=== PATIENT | female | born 1950 | race Hispanic/Latino ===

== ENCOUNTER 2019-03-07 22:43 | Inpatient (IN) | payer MEDICARE ==
[~2019-03-07] VITALS: Ht 152.4 cm; Wt 57.4 kg
[2019-03-07] MEDS ORDERED: ZOFRAN4 MG PO (23:02)
[2019-03-08] MEDS ORDERED: METFORMIN HCL1000 MG PO (03:25)
[2019-03-08] MEDS ORDERED: LIPITOR20 MG PO (03:26)
[2019-03-08] MEDS ORDERED: LISINOPRIL2.5 MG PO (03:27)
[2019-03-08] MEDS ORDERED: CALTRATE 600 +1 EAC1 PO (03:27)
--- NOTE | 2019-03-09 10:51 | HP ---
[facility] [address], [place] [address] Signed ADMISSION DATE: 03/08/2019 REASON FOR ADMISSION: Incarcerated right inguinal hernia, low-grade obstruction of bowel. HISTORY OF PRESENT ILLNESS: This 68-year-old woman is from the [facility] and developed right lower abdominal pain at 1:30 in the afternoon on the day of admission. The pain was constant. She had associated nausea and vomiting. She presented to the emergency room where she was evaluated by Dr. Rice. Initial examination showed no obvious abnormality. A CT scan was performed, which showed an incarcerated right inguinal hernia. Re-examination confirmed a mass in the right lower groin crease area. She was admitted for further evaluation and care. Her past medical history is negative for prior hernia operation; however, she does describe some sort of hernia-type problem at age 2. It is quite unclear. The hernia was thought to be reducible largely by the emergency room physician and direct admission to the hospital was undertaken with fluid administration, making the patient n.p.o. PAST MEDICAL HISTORY: Includes diabetes and hypertension. REVIEW OF SYSTEMS: She denies any shortness of breath or chest pain. She has had no hematemesis or blood per rectum. She has not had any nausea or vomiting since admission. PHYSICAL EXAMINATION: GENERAL: Pleasant woman who looks to be nontoxic. HEENT: Mucous membranes are reasonably moist. Trachea is midline. CHEST: Clear. HEART: Regular without murmur. ABDOMEN: Nondistended and generally soft. In the right groin area, there is a non-reducible hernia. It is locally tender to some degree. EXTREMITIES: Show no clubbing, cyanosis, or edema. LABORATORY DATA: Lab studies from admission show a white count of 11.7, hematocrit 41.4. Chem profile is normal. Glucose is 191. Liver enzymes are normal. Lipase 22. Urinalysis is normal. I reviewed the CT scan in detail. Relatively high-grade obstruction of small bowel is noted through what appears to be an incarcerated right inguinal hernia. Electronically Signed By: ANGELA BLAKE MD 03/09/19 1051 PATIENT NAME: JANET MAHER HISTORY AND PHYSICAL DATE OF : 48 REPORT #: [id number] PHYSICIAN: ANGELA BLAKE MD PCP: OTHER PCP REPORT IS CONFIDENTIAL AND NOT TO BE RELEASED WITHOUT AUTHORIZATION [facility] [address] [place] [address] Signed ASSESSMENT: She has a right inguinal hernia, which is incarcerated and causing low-grade bowel obstruction. Operative repair is certainly needed. I discussed this with her in detail and the risks of bleeding, infection, and other unforeseen complications were reviewed in detail. PLAN: We will continue with IV fluids. Given her obstructive pattern, nasogastric tube will be placed so as to minimize chances of aspiration at the time of induction of anesthesia. We will plan to do the operation today obviously. MD LORE Coulter/YARA /[id number] cc: Julieth Rice MD Copies: JULIETH RICE MD ~ Electronically Signed By: ANGELA BLAKE MD 03/09/19 1051 PATIENT NAME: JANET MAHER HISTORY AND PHYSICAL DATE OF : 48 REPORT #: [id number] PHYSICIAN: ANGELA BLAKE MD PCP: OTHER PCP REPORT IS CONFIDENTIAL AND NOT TO BE RELEASED WITHOUT AUTHORIZATION
[2019-03-09] MEDS ORDERED: TYLENOL325 MG PO (12:31)
[2019-03-09] MEDS ORDERED: OXYCODON-ACETA1 EAC2 PO (12:31)
[2019-03-09] MEDS ORDERED: MOTRIN IB200 MG PO (12:32)
--- NOTE | 2019-03-15 14:35 | OR ---
[facility] [address], [place] [address] Signed DATE OF OPERATION: 03/08/2019 SURGEON: Angela Blake MD PREOPERATIVE DIAGNOSIS: Incarcerated right groin hernia with small bowel obstruction (ileum). POSTOPERATIVE DIAGNOSIS: Incarcerated right femoral hernia with small bowel obstruction (ileum). PROCEDURES: 1. Repair of incarcerated right femoral hernia. 2. Implantation of Prolene mesh. ANESTHESIA: General endotracheal; Angela Brown CRNA, and Mishel Mckenzie CRNA as well as local 10 mL of 0.25% Marcaine with epinephrine. INDICATION: This 68-year-old woman presented to the ER with severe right lower abdominal pain and abdominal distention. A CT scan was performed confirming an incarcerated right groin hernia. Clinical examination fails to distinguish a femoral versus inguinal hernia. She has been given fluid resuscitation, intravenous antibiotics and so forth and is now to undergo repair. She understands the risk of bleeding, infection, recurrence, and other unforeseen complications including possibility of need for laparotomy or bowel resection and wished to proceed. FINDINGS: A standard inguinal incision was made, which ultimately revealed the hernia was indeed an incarcerated femoral hernia. The incarcerated organ was that of the ileum. A small division of the inguinal ligament was required to reduce the bowel fully, but the bowel that was reduced was viable. Repair included reconstitution of the ilioinguinal ligament as well as implantation of Prolene mesh extending over the iliopubic tract covering the defect. Additionally, soft tissue over the femoral canal was reapproximated. DESCRIPTION OF PROCEDURE: The patient was brought to the operating room, given a general endotracheal anesthetic. Preoperative antibiotic Ancef was given. Sequential compression device stockings used Electronically Signed By: ANGELA BLAKE MD 03/15/19 1435 PATIENT NAME: JANET MAHER OPERATIVE REPORT DATE OF : 48 REPORT #: [id number] PHYSICIAN: ANGELA BLAKE MD PCP: OTHER PCP REPORT IS CONFIDENTIAL AND NOT TO BE RELEASED WITHOUT AUTHORIZATION [facility] [address], [place] [address] Signed and heparin subcutaneously administered. The abdomen was prepared with a chlorhexidine solution and draped sterilely. The palpable mass was in the region of the inguinal ligament, not above and not below specifically. An incision was made along the line of skin tension cephalad to the ilioinguinal ligament. Dissection carried through the subcutaneous tissue. Dissection with blunt technique was undertaken ultimately allowing for opening of the external oblique fascia. The round ligament going to the labia was identified and edema and fullness noted in the region. The bulge appeared to be in fact below the inguinal ligament and the subcutaneous tissue inferiorly and laterally was freed more fully confirming this. This was indeed an incarcerated femoral hernia. The floor of the canal was opened allowing for good visualization of the femoral canal with the small bowel loop that had transgressed the area. The hernia sac itself was edematous and with various maneuvers, both pulling and pushing the incarcerated loop of bowel could not be reduced. On that basis, a right angle clamp was used to incise the femoral canal superficially dividing a portion of the iliopubic tract, thus allowing for reduction of the hernia. The properitoneal space was more fully developed and implantation of Prolene mesh as a definitive treatment was deemed most advisable. The ilioinguinal ligament was reconstituted with interrupted Prolene suture. A segment of Prolene mesh was cut to a modified elliptical configuration and secured with care taken to cover the iliopubic tract and thus also the femoral canal. This was secured to the iliopubic tract and to portions of the ilioinguinal ligament laterally and superiorly and medially beneath the conjoined tendon or tendon of the transversus abdominis. Good coverage was noted. Examination inferior to the inguinal ligament showed the mesh covering the femoral defect, but additional sutures were placed there to secure the mesh and to avoid reherniation. The round ligament had been excised to allow for better exposure. The external oblique was reapproximated with running 2-0 PDS. Ron's layer was reapproximated with interrupted 2-0 Vicryl and skin closed with running subcuticular 3-0 Vicryl. 10 mL of 0.25% Marcaine with epinephrine had been injected locally for postoperative analgesic benefit. Steri-Strips were applied as was Mepilex silver sponge dressing and an OpSite. The patient tolerated procedure well. BLOOD LOSS: Minimal. COMPLICATIONS: None. Electronically Signed By: ANGELA BLAKE MD 03/15/19 1435 PATIENT NAME: JANET MAHER OPERATIVE REPORT DATE OF : 48 REPORT #: [id number] PHYSICIAN: ANGELA BLAKE MD PCP: OTHER PCP REPORT IS CONFIDENTIAL AND NOT TO BE RELEASED WITHOUT AUTHORIZATION [facility] [address] [place] [address] Signed Angela Blake MD JM/MODL /[id number] Copies: ~ Electronically Signed By: ANGELA BLAKE MD 03/15/19 1435 PATIENT NAME: GUNNARJANET BARBARA OPERATIVE REPORT DATE OF : 48 REPORT #: [id number] PHYSICIAN: ANGELA BLAKE MD PCP: OTHER PCP REPORT IS CONFIDENTIAL AND NOT TO BE RELEASED WITHOUT AUTHORIZATION
== END 2019-03-09 15:20 | disposition home or self-care (01) | DRG 352 ==
LOC: ED 22:43 → MS 22:45
PROVIDERS: ADMIT Surgery
PROC: 0YU70JZ Supplement Right Femoral Region with Synthetic Substitute, Open Approach (ICD-10-PCS; principal; 2019-03-08 08:30)
DX: K41.30 Unilateral femoral hernia, with obstruction, without gangrene, not specified as recurrent (principal); E11.9 Type 2 diabetes mellitus without complications; I10 Essential (primary) hypertension; Z88.0 Allergy status to penicillin; Z88.5 Allergy status to narcotic agent
CPT/HCPCS: 00830; 71045; 74018; 74177; 80053; 81001; 83690; 85025; 87088; 94762; 99285-25; C1781; J0131; J0330; J0690; J0694; J1100; J1170; J1644; J1885; J2250; J2405; J2704; J2765; J3010; J3475; J7030; J7060; J7120; Q9967

== ENCOUNTER 2019-11-15 10:00 | Day surgery (SDC) | payer MEDICARE ==
[~2019-11-15] VITALS: Ht 152.4 cm; Wt 59.0 kg
--- NOTE | ~2019-11-15 | OR ---
[facility] [address] [place], [place] [address] Draft DATE OF OPERATION: 11/15/2019 SURGEON: Angela Blake MD PREOPERATIVE DIAGNOSIS: Recurrent right groin hernia. POSTOPERATIVE DIAGNOSIS: Complex recurrent right groin hernia including femoral canal and ilioinguinal floor. PROCEDURE: 1. Repair of recurrent large femoral/inguinal hernia. 2. Implantation of Prolene mesh. 3. Tissue reapproximation to the iliopubic tract. ANESTHESIA: General endotracheal; Angela Brown CRNA, and local 10 mL of 0.25% Marcaine with epinephrine. INDICATION: This 69-year-old woman is a patient of Dr. Nasir Gonzalez, of [place], [place]. She had undergone an incarcerated right femoral hernia repair in February of 2019. Repair was challenging and partial division of the ilioinguinal ligament was required for reduction of the hernia. Repair included implantation of mesh. She developed a recurrent hernia in the right groin and was seen in the COVID era, unable to have repair of the hernia at that time. Her right inguinal hernia is rather bulky and fully reducible without sign of an incarceration; however, I have recommended repair. The risks of bleeding, infection, and most importantly recurrence were reviewed with her and she understands and wished to proceed. Of note, she does not have urinary outlet obstruction symptoms, constipation, or chronic cough. FINDINGS: A total blow out of the floor was noted. This included the area of the femoral hernia repair. Herniation of bowel in the hernia sac was noted. There was no sign of incarcerated viscus. The bowel was easily reduced. The medial aspect did show bladder fat. Ultimately defined well was the iliopubic tract and the firm fibrotic mesh from previously appeared to have incorporated in the transversalis fascia superiorly and was certainly not in any way connected to the inguinal ligament or ileopubic tract. PATIENT NAME: JANET MAHER OPERATIVE REPORT DATE OF : 48 REPORT #: [id number] PHYSICIAN: ANGELA BLAKE MD PCP: OTHER PCP REPORT IS CONFIDENTIAL AND NOT TO BE RELEASED WITHOUT AUTHORIZATION [facility] [address] [place], [place] [address] Draft Repair consisted of defining well the properitoneal space, ligation and amputation of the redundant hernia sac, implantation of Prolene mesh, draping over the ileopubic tract deeply with transition of security of the mesh to the lateral aspect of the ileopubic tract, taking care to avoid encumbrance of the femoral vein and artery, and reapproximation of soft tissue to the iliopubic tract and inguinal ligament as well. DESCRIPTION OF PROCEDURE: The patient was brought to the operating room, given a general endotracheal anesthetic. Preoperative antibiotic, Levaquin was given. Sequential compression device stockings were used. Heparin subcutaneously administered. Palpation of the bulky hernia in the right groin was easily accomplished and it was reduced without problem. It was not incarcerated. The previous incision was used and dissection carried through the fibrous tissue using blunt electrocautery dissection. Noted ultimately was a bulky hernia sac extruding from fibers medially of the external oblique, essentially the reapproximated fibers of the external oblique from prior repair. The hernia sac was dissected free from surrounding soft tissue with blunt and electrocautery dissection, ultimately opened and found to have no sign of incarcerated hollow viscus and only a minor sliding component of bladder fat medially. The bowel loops internally were normal. There was no sign of carcinomatosis. Definition of the iliopubic tract including the bony confines of the pelvic rim was undertaken. Care was taken to separate the hernia sac fully from surrounding soft tissue. The right femoral external iliac artery and vein were easily palpated and kept out of harm's way. Remnant of the ilioinguinal ring was defined more fully. It appeared that there was extensive fibrosis of the external oblique, internal oblique, and transversalis layers incorporating mesh that was previously implanted. This was all kept in the medial superior aspect and had completely distracted from the iliopubic tract and inguinal ligament. Once the iliopubic tract and fibrotic tendon of the transversus abdominis was more fully defined and with the benefit of not having to be concerned of entrapment of a spermatic cord due to her gender, plans were made for repair. The redundant hernia sac was sequentially secured with a running 2-0 silk suture amputating the hernia sac and passed it for pathology. A segment of Prolene mesh was cut to an elliptical configuration and secured in an underlay technique extending from the pubic symphysis and securing it to the iliopubic tract inferiorly and medially transitioning to inguinal ligament laterally. The mesh was then tucked under the fascia of the transversalis medially and secured as well. Freeing of fibrotic encumbrance of the external oblique from the underlying fibrotic fascia transversalis was undertaken and that tissue secured additionally to the iliopubic tract. The mesh was secured with PATIENT NAME: JANET MAHER OPERATIVE REPORT DATE OF : 48 REPORT #: [id number] PHYSICIAN: ANGELA BLAKE MD PCP: OTHER PCP REPORT IS CONFIDENTIAL AND NOT TO BE RELEASED WITHOUT AUTHORIZATION [address], [place] [address] Draft interrupted 2-0 Prolene and the soft tissue with interrupted 0 Prolene suture. Complete closure of the defect was accomplished. Through a separate stab incision, a 7 mm flat Jace drain was placed, secured to the skin with nylon suture. Irrigation was undertaken. Ron's layer was reapproximated with interrupted 2-0 Vicryl after application of 10 mL of 0.25% Marcaine with epinephrine. Skin was closed with running subcuticular 3-0 Vicryl and Steri-Strips were applied as was a silver sponge dressing. The drain was attached to bulb suction. Blood loss was estimated at 20 mL at most. Sponge, needle, and counts were reported as correct x3. The operation was rather prolonged, complicated, and difficult on the basis of scarring and distorted anatomy, but was accomplished safely. MD LORE Coulter/YARA /[id number] Copies: ~ PATIENT NAME: JANET MAHER OPERATIVE REPORT DATE OF : 48 REPORT #: [id number] PHYSICIAN: ANGELA BLAKE MD PCP: OTHER PCP REPORT IS CONFIDENTIAL AND NOT TO BE RELEASED WITHOUT AUTHORIZATION
[~2019-11-15 10:00] MED LIST: CALTRATE 600 +1 EAC1 PO; LIPITOR20 MG PO; LISINOPRIL2.5 MG PO; METFORMIN HCL1000 MG PO; MOTRIN IB200 MG PO; OXYCODON-ACETA1 EAC2 PO; TYLENOL325 MG PO; ZOFRAN4 MG PO
--- NOTE | 2019-11-15 13:06 | NUR ---
11/15/19 1306 Sheets,Verena 1259 PT ARRIVED ASLEEP AND VSS. RESP EVEN AND UNLABORED. 10L VIA MASK IN PLACE. 1300 O2 DECREASED TO 6L VIA MASK. 1303 PT WAKES TO VERBAL STIMULI AND DENY NAUSEA AND PAIN.
[2019-11-15] MEDS ORDERED: TYLENOL EXTRA500 MG PO (13:32)
[2019-11-15] MEDS ORDERED: OXYCODONE HCL5 MG PO (13:32)
[2019-11-15] MEDS ORDERED: IBUPROFEN600 MG PO (13:32)
[2019-11-15] MEDS ORDERED: MIRALAX17 GM PO (13:33)
--- NOTE | 2019-11-15 15:50 | NUR ---
1450) PATIENT STILL FEELING "WEAK" AND TIRED 1530) FEELING STRONGER AND EATTING PUDDING AND CRACKERS.
--- NOTE | 2019-11-16 15:55 | PATH ---
[facility] [address] [facility] [place], [place] [address] Signed SPECIMEN(S): A HERNIA SAC, RIGHT INGUINAL SPECIMEN SOURCE: A. HERNIA SAC, RIGHT INGUINAL CLINICAL HISTORY: Recurrent right inguinal hernia. FINAL PATHOLOGIC DIAGNOSIS: Hernia sac, right inguinal, excision: - Mesothelial lined fibroadipose tissue with vascular congestion. - Benign lymph node tissue with marked fibrosis. - No evidence of malignancy. COMMENT: As part of [facility] Quality Improvement Program, this case was reviewed by another member of our pathology staff. NAL: :cml:[id number] MICROSCOPIC EXAMINATION: Histologic sections of all submitted blocks are examined by light microscopy. These findings, together with the gross examination, support the pathologic diagnosis. GROSS DESCRIPTION: The specimen, labeled "BS, A.," and designated on the requisition "right inguinal hernia sac," is received in formalin and consists of a violaceous membranous fatty tissue fragment measuring 10.2 x 6.0 x 2.0 cm. Specimen is serially sectioned revealing fibrous areas and possible nodule measuring 0.9 x 0.4 x 0.4 cm. Motion Picture Critic sections are submitted in cassettes (A1-A2), block (A2) with possible nodule, quadrisected. AT (under the direct supervision of a pathologist) The Gross Description was prepared using a voice recognition system. The report was reviewed for accuracy; however, sound-alike word errors, addition and/or deletions may occur. If there is any question about this report, please contact Client Services. PERFORMING LABORATORY: The technical component was performed by [facility], [address] [place] [id number] (Roof Assembler: Nicky Jorge MD; CLIA# [id number]). PATIENT NAME: JANET MAHER PATHOLOGY DATE OF : 48 REPORT #: [id number] PHYSICIAN: [facility] PCP: OTHER PCP REPORT IS CONFIDENTIAL AND NOT TO BE RELEASED WITHOUT AUTHORIZATION [facility] [address] [place], [place] [address] Signed [facility] [address] [place] [address] (CLIA# [id number]). Diagnostician: Kaila Sharif MD Pathologist Electronically Signed 11/16/2019 Copies: ~ PATIENT NAME: JANET MAHER PATHOLOGY DATE OF : 48 REPORT #: [id number] PHYSICIAN: [facility] PCP: OTHER PCP REPORT IS CONFIDENTIAL AND NOT TO BE RELEASED WITHOUT AUTHORIZATION
--- NOTE | 2019-11-16 16:35 | EKG ---
[facility] [address] [facility] [place] [address] Signed Sinus bradycardia Right bundle branch block T wave abnormality, consider inferior ischemia Abnormal ECG No previous ECGs available Confirmed by ANNY GARCIA DO ([id number]) on 11/16/2019 4:35:30 PM Electronically Signed By: ANNY GARCIA DO 11/16/19 1635 PATIENT NAME: JANET MAHER Electrocardiogram DATE OF : 48 PHYSICIAN: ANNY GARCIA DO REPORT #: [id number] REPORT IS CONFIDENTIAL AND NOT TO BE RELEASED WITHOUT AUTHORIZATION
== END 2019-11-15 17:35 | disposition home or self-care (01) ==
LOC: DS 10:00
PROVIDERS: Surgery
PROC: 0YU50JZ Supplement Right Inguinal Region with Synthetic Substitute, Open Approach (ICD-10-PCS; 2019-11-15)
PROC: 0YU70JZ Supplement Right Femoral Region with Synthetic Substitute, Open Approach (ICD-10-PCS; principal; 2019-11-15 09:00)
DX: K41.91 Unilateral femoral hernia, without obstruction or gangrene, recurrent (principal); K40.91 Unilateral inguinal hernia, without obstruction or gangrene, recurrent; E11.9 Type 2 diabetes mellitus without complications; Z88.0 Allergy status to penicillin; Z88.8 Allergy status to other drugs, medicaments and biological substances; Z79.84 Long term (current) use of oral hypoglycemic drugs
CPT/HCPCS: 00830; 93005; 93010; C1781; J0690; J1100; J1644; J1885; J2250; J2405; J2704; J2765; J3010; J7121